=== PATIENT | male | born 2005 | race Caucasian/White ===

== ENCOUNTER 2024-07-02 23:08 | Emergency (ER) | payer OTHER ==
[~2024-07-02] VITALS: Ht 175.3 cm; Wt 196.0 kg
[2024-07-03] MEDS ORDERED: IBUP-1022 PO (04:23)
[2024-07-03 04:30] VITALS: BP 125/58; TEMP 97.8; O2SAT 98
== END 2024-07-03 05:04 | disposition home or self-care (01) ==
LOC: M ED 23:08 → EDBD 23:08 → M ED 07-03 05:04
DX: M25.552 Pain in left hip (principal); W01.0XXA Fall on same level from slipping, tripping and stumbling without subsequent striking against object, initial encounter; Y93.89 Activity, other specified; Y92.84 Military training ground as the place of occurrence of the external cause; Y99.1 Military activity